=== PATIENT | female | born 1960 | race Caucasian/White ===

== ENCOUNTER → 2016-05-31 | Outpatient (CLI) | payer OTHER ==
[~2016-05-31] MED LIST: CLR10 PO; ESCI10TA17 PO; IMT100 PO; PANT40TA PO; SUMA6KIT2 SQ
--- NOTE | 2016-05-31 17:01 | MAMMOGRAPHY REPORT ---
BILATERAL DIGITAL SCREENING MAMMOGRAM TOMOSYNTHESIS WITH CAD: 05/31/2016 CLINICAL HISTORY: Routine screening. Patient has no complaints. TECHNIQUE: Breast tomosynthesis in addition to standard 2D mammography was performed. Current study was also evaluated with a Computer Aided Detection (CAD) system. COMPARISON: Comparison is made to exams dated: 03/24/2015 mammogram, 06/25/2013 mammogram, 06/21/2012 mammogram, 05/02/2011 mammogram, 07/21/2009 mammogram - [facility], and 07/17/2008. BREAST COMPOSITION: There are scattered areas of fibroglandular density in both breasts. FINDINGS: The ankle pattern is similar to prior exams. The right lateral posterior asymmetry is les s prominent even on the repeat right CC view, slightly laterally exaggerated. There are stable samaria gn-appearing microcalcifications in the breasts. No new suspicious mass, architectural distortion o r cluster of microcalcifications is seen. IMPRESSION: ACR BI-RADS CATEGORY 1: NEGATIVE There is no mammographic evidence of malignancy. A 1 year screening mammogram is recommended. The p atient will receive written notification of the results. Approximately 10% of breast cancers are not detected with mammography. A negative mammographic repor t should not delay biopsy if a clinically suggestive mass is present. Isis Clarke M.D. ay/:05/31/2016 16:09:47 Litigation Attorney Associate: Elizabeth SINGHR, M, [facility] letter sent: Normal 1/2 BI-RADS Code: ACR BI-RADS Category 1: Negative
== END | disposition home or self-care (01) ==
LOC: C.MAMM 14:21
PROVIDERS: ATTEND Family Medicine
DX: Z12.31 Encounter for screening mammogram for malignant neoplasm of breast (principal)

== ENCOUNTER → 2017-02-16 | Outpatient (CLI) | payer BC | END | disposition home or self-care (01) | LOC: C.CPL 14:54 | PROVIDERS: ATTEND Psychiatry & Neurology Psychiatry | DX: F33.3 Major depressive disorder, recurrent, severe with psychotic symptoms (principal) ==